=== PATIENT | male | born 1980 | race Caucasian/White ===

== ENCOUNTER 2021-01-08 23:30 | Emergency (ER) | payer MEDICARE, SELFPAY ==
--- NOTE | ~2021-01-08 | XR_ITS ---
EXAMINATION: XR chest 1V portable DATE: 01/08/2021 23:51 INDICATION: Left chest pain. TECHNIQUE: A single frontal view of the chest was obtained. COMPARISON: None. FINDINGS: The chest demonstrates clear lungs without pneumonia, pleural effusion, or pneumothorax. Th e heart size is normal. IMPRESSION: 1. No acute cardiopulmonary disease. Reviewed, dictated and finalized at location A.
[2021-01-08 23:30] VITALS: BP 154/105; PULSE 73; RESP 20; TEMP 36.5; O2SAT 97
--- NOTE | 2021-01-08 23:36 | ECG_ITS ---
Measurements Intervals [place] Rate: 76 P: 6 DE: 119 QRS: 34 QRSD: 91 T: 33 QT: 346 QTc: 389 Interpretive Statements SINUS RHYTHM WITH SHORT DE INTERVAL INCOMPLETE RIGHT BUNDLE BRANCH BLOCK BASELINE ARTIFACT- I, II, III, AVR, AVL, AVF, V1-V2 BORDERLINE ECG Electronically Signed On 01-09-2021 7:59:23 CDT by Lavon Echavarria D.O.
[2021-01-08] MEDS: ASPIRIN 325 MG ENTERIC TABLET PO (23:50)
[2021-01-08] MEDS: SODIUM CHLORIDE 0.9% IV 1,000 ML 150 ML IV CONT (23:50)
[2021-01-08] MEDS: NITROGLYCERIN SL 0.4 MG TABLET SUBLINGUAL (23:51)
[2021-01-08 23:56] LABS: Eosinophils Absolute Auto 0.39 K/mm3 (0.02-0.50); Eosinophils Percent Auto 3.7 % (1.0-6.0); Hematocrit 49.5 % (40.0-54.0); Hemoglobin 16.7 g/dL (14.0-18.0); Immature Granulocyte Absolute 0.03 K/mm3 (0.00-0.00); Immature Granulocyte Percent A 0.3 % (0.0-0.0); Lymphocytes Percent Auto 17.2 % (18.0-42.0); Mean Corpuscular HGB Conc 33.7 g/dL (32.0-36.0); Mean Corpuscular Hemoglobin 31.2 pg (27.0-31.0); Mean Corpuscular Volume 92.4 fL (78.0-102.0); Mean Platelet Volume 9.1 fl (8.7-11.0); Monocytes Absolute Auto 1.01 K/mm3 (0.10-0.90); Monocytes Percent Auto 9.6 % (2.0-11.0); Neutrophils Absolute Auto 7.2 K/mm3 (1.7-7.2); Neutrophils Percent Auto 68.2 % (50.0-70.0); Platelet Count Result 226 K/mm3 (150-420); Red Blood Count 5.36 M/mm3 (4.70-6.10); Red Cell Distribution Width 12.6 % (11.6-14.4); White Blood Count 10.5 K/mm3 (4.8-10.8)
[2021-01-09 00:11] LABS: Amphetamine Screen Urine Negative (Negative); Barbiturate Screen Urine Negative (Negative); Benzodiazepines Screen Urine Negative (Negative); Cannabinoid Screen Urine Negative (Negative); Cocaine Screen Urine Negative (Negative); Methadone Screen Urine Negative (Negative); Opiate Screen Urine Negative (Negative); Phencyclidine Screen Urine Negative (Negative)
[2021-01-09 00:14] LABS: Alanine Aminotransferase 64 U/L (16-63); Albumin Level 3.7 g/dL (3.4-5.0); Alkaline Phosphatase 119 U/L (46-116); Anion Gap 9 mmol/L (8-16); Aspartate Amino Transferase 25 U/L (15-37); Bilirubin,Total 0.3 mg/dL (0.00-1.00); Blood Urea Nitrogen 16 mg/dL (7-18); Calcium 8.6 mg/dL (8.5-10.1); Carbon Dioxide 29 mmol/L (21-32); Chloride 103 mmol/L (98-108); Estimated CRCL calculation 88 ml/min; Estimated Glomerular Filt Rate > 60; Ethanol < 3 mg/dL (0-6); Glucose 140 mg/dL (70-99); Osmolality Calculated 295 mOsm/kg (285-295); Potassium 3.9 mmol/L (3.5-5.1); Sodium 141 mmol/L (136-145); Total Protein 7.2 g/dL (6.4-8.2); Troponin I 13.2 ng/L (0.00-60.4)
[2021-01-09 00:48] VITALS: BP 125/88; PULSE 88; RESP 20; O2SAT 98
[2021-01-09 01:33] VITALS: BP 125/91; PULSE 67; RESP 20; O2SAT 98
[2021-01-09 02:05] LABS: Troponin I 12.8 ng/L (0.00-60.4)
--- NOTE | 2021-01-09 02:10 | ED.CHESTPAIN ---
HPI - Chest Pain General Chief Complaint: Chest Pain Stated Complaint: Chest Pain Time Seen by Provider: 01/08/21 23:32 Source: patient and RN notes reviewed Mode of arrival: ambulatory Limitations: no limitations History of Present Illness complaint: chest pain Onset (ago): minute(s) (45) Timing of current episode: constant Prior episodes: Yes Onset: during rest Pain location: left chest Pain radiation: none Severity: mild Pain scale (0-10): 5 Quality: aching, heaviness and dull Relieving factors: nothing Exacerbating factors: nothing Treatment prior to arrival: none Risk Factors Coronary artery disease risk factors: family history of CAD before age 50 and cocaine use Related Data Home Medications Medication Instructions Recorded Confirmed No Home Medications 01/08/21 01/08/21 Allergies Allergy/AdvReac Type Severity Reaction Status Date / Time No Known Allergies Allergy Verified 01/09/21 00:14 Review of Systems Review of Systems: All systems reviewed & are unremarkable except as noted in HPI and below Cardiovascular: Cardiovascular: Reports chest pain PMFSH Past Medical History Medical History Atypical chest pain Social History Social History Substance use type: former substance user, marijuana and methamphetamine Exam Const: General: no acute distress and alert Nutritional Appearance: well nourished Orientation/consciousness: patient oriented x3 Limitations: no limitations HENMT: Head: normal to inspection Ears: external ears normal General nose exam: Normal external nose present and Normal nares present Face and sinus: normal facial exam Mouth: Yes moist mucous membranes Eyes: Conjunctivae: conjunctivae normal Pupils: Equal, round and reactive pupils present EOM: EOMs intact bilaterally Neck: Neck: normal visual inspection and no lymphadenopathy Chest: Chest palpation & inspection: normal inspection of the chest Resp: Auscultation: clear to auscultation bilaterally Cardio: Rate: regular rate Rhythm: regular rhythm GI: GI Palp: Yes Soft to palpation and No Tenderness to palpation present (GI) Percussion: Yes normal to percussion : General: Yes no CVA tenderness Testes: Testes normal Back/Spine/Pelvis: Back: no CVA tenderness Skin: General skin exam: normal color Rashes: no rashes Neuro: General: patient oriented x3, moves all extremities, no meningeal signs, no focal motor deficits and CN's II-XI intact bilaterally Extrem: General: normal to inspection and no pedal edema Psych: Appearance: grossly normal and well kempt Mental Status: mental status grossly normal Attitude: cooperative Thought content: Yes Normal thought content present Course Course Emergency Course: Pt was stable and pain-free in the ED. Reevaluation(s) Date: 01/09/21 Time: 00:25 Vital Signs Vital signs: Vital Signs Temperature 36.5 C 01/08/21 23:30 Pulse Rate 73 01/08/21 23:30 Respiratory Rate 20 01/08/21 23:30 Blood Pressure 154/105 H 01/08/21 23:30 Pulse Oximetry 97 01/08/21 23:30 Temperature 36.5 C 01/08/21 23:30 Pulse Rate 67 01/09/21 01:33 Respiratory Rate 20 01/09/21 01:33 Blood Pressure 125/91 H 01/09/21 01:33 Pulse Oximetry 98 01/09/21 01:33 MDM - Chest Pain Differential Diagnosis Differential diagnosis: Likely atypical chest pain, costochondritis and chest pain Medical Records Data Attestation: I reviewed the patient's medical records. Lab Data Attestation: I reviewed the patient's lab results. Result diagrams: 01/08/21 23:52 01/08/21 23:52 Labs: Lab Results 01/08/21 01/08/21 01/08/21 Range/Units 23:52 23:52 23:55 WBC 10.5 (4.8-10.8) K/mm3 RBC 5.36 (4.70-6.10) M/mm3 Hgb 16.7 (14.0-18.0) g/dL Hct 49.5 (40.0-54.0) % MCV 92.4 (78.0-102.0) fL MCH 31.2 H (27.0-
[2021-01-09 02:27] VITALS: BP 138/90; PULSE 62; RESP 20; TEMP 36.7; O2SAT 99
== END 2021-01-09 02:34 | disposition home or self-care (01) ==
PROVIDERS: Emergency Provider Emergency Medicine
DX: R07.89 Other chest pain (principal)
CPT/HCPCS: 36415; 71045; 80053; 80307; 84484; 85025; 93005; 96360; 96361; 99283; 99284; A9270; J7030